=== PATIENT | female | born 1990 | race Caucasian/White ===

== ENCOUNTER 2016-04-21 16:15 | Emergency (ER) | payer OTHER ==
[2016-04-21 16:25] VITALS: BP 132/77
--- NOTE | 2016-04-21 16:58 | ERNOTE ---
ENT HPI Date of Service: 04/21/16 Presenting Symptoms: other - Sore throat Time Seen by Provider: 04/21/16 16:57 Source: patient, RN notes reviewed Exam Limitations: no limitations - Immun/Allergies/Home Medications Immunizations: IMMUNIZATION HX Immunizations Up to Date Yes History of Influenza Vaccine No Hx Pneumococcal Vaccination No Allergies/Adverse Reactions: Allergies Allergy/AdvReac Type Severity Reaction Status Date / Time amoxicillin [Amoxicillin] AdvReac Mild RASH, FEVER Verified 04/21/16 16:25 Home Medications: HOME MEDICATIONS Alprazolam [Alprazolam Xr] 1 mg PO QID PRN 01/13/16 [Last Taken Unknown] Acetaminophen [Tylenol] 1,000 mg PO Q6H PRN 01/16/16 [Last Taken Unknown] Albuterol Sulfate [Proair Hfa] 1 - 2 puff IH Q4H PRN 01/16/16 [Last Taken Unknown] Ibuprofen [Motrin] 800 mg PO TID 01/16/16 [Last Taken Unknown] Lamotrigine [Lamictal] 450 mg PO DAILY 01/16/16 [Last Taken Unknown] Ondansetron [Zofran Odt] 4 mg PO Q8H PRN 01/16/16 [Last Taken Unknown] buPROPion HCL [Wellbutrin SR, Zyban] 150 mg PO DAILY 01/16/16 [Last Taken Unknown] Azithromycin [Zithromax] 250 mg PO DAILY #6 tablet 04/21/16 [Last Taken Unknown] - History of Present Illness Narrative: 25 y/o female ambulatory to ED for a sore throat that began yesterday. She also reports fever, chills, headache, and ear pain. She took Tylenol [employer]. ENT Location: Present: throat Prearrival Treatment: Present: over the counter meds Associated Symptoms - ENT: Reports: fever, malaise, sore throat, headache. Denies: cough, nasal congestion/drainage, facial pain/swelling, tooth pain, change in hearing, ear drainage Review of Systems - Review of Systems Constitutional: Present: fever, chills, fatigue, malaise EYE: Present: no symptoms reported ENT: Present: ear pain, sore throat. Absent: ear discharge, nose congestion, nasal drainage Respiratory: Absent: shortness of breath, cough Cardiology: Present: no symptoms reported Gastrointestinal/Abdominal: Absent: nausea, vomiting, abdominal pain Genitourinary: Absent: other - possible Musculoskeletal: Present: muscle pain, joint pain Skin: Absent: rash, lesions Neurological: Present: headache. Absent: dizziness/light-headedness Endocrine: Present: no symptoms reported Hematologic/Lymphatic: Present: no symptoms reported Psych: Present: no symptoms reported - Patient's Past Medical History Patient History - Medical: Anxiety, Headache, Other Patient History - Cardiac/Respiratory: Asthma Patient History - Cancer: No Hx of Cancer Patient History - Surgical Procedures: Cholecystectomy, Other Patient History - Other: None LMP (Calendar): 03/20/16 - Family History Mother Family History - Medical: No pertinent hx Family History - Cardiac/Respiratory: Asthma Father Family History - Medical: No pertinent hx Family History - Cardiac/Respiratory: Asthma maternal aunt Family History - Medical: No pertinent hx Family History - Cardiac/Respiratory: No pertinent hx - Social History Living Situations: home Abuse History: No History of abuse Psych History: Hx of Anxiety, Hx of Depression, Current tx/ever been on anti- depressants or anti-anxiety meds Smoking Status: Never smoker Alcohol Use: rarely Drug Use: none - Immunizations Immunizations Up to Date: Yes Hx Pneumococcal Vaccination: No History of Influenza Vaccine: No Physical Exam - Physical Exam General Appearance: Present: wd/wn, alert, other - appears uncomfortable Eye Exam: Normal inspection: bilateral Ears, Nose, Throat: Present: hearing grossly normal, pharyngeal erythema. Absent: abnormal TM (R), abnormal TM (L), nasal congestion, sinus pain/drainage , pharyngeal swelling, tonsillar exudate Neck: Present: supple, full range of motion, lymphadenopathy (R), lymphadenopathy (L), tender lateral Respiratory: Present: no respiratory distress, normal breath sounds, no accessory muscle use, lungs clear Cardiovascular/Chest: Present: regular rate, rhythm, no murmur Neurological Exam: Present: alert, oriented, normal mood/affect, no motor/ sensory deficits Skin Exam: Present: normal color, warm/dry ED Progress - Results and Orders Patient's Lab Results:: I have reviewed the patient's lab results. - Vital Signs Patient's Vital Signs:: I have reviewed the patient's vital signs. Vital Signs: Vital Signs 04/21/16 16:21 Temperature 37.4 C Pulse Rate 94 Respiratory 16 Rate Blood Pressure 132/77 O2 Sat by Pulse 97 Oximetry - Progress/Reassessment Chief Complaint: Sore Throat Progress:: Unchanged Plan - Plan Plan: Negative rapid strep but given fever and cervical adenopathy will treat for strep. Culture pending. Departure Clinical Impression: URI (upper respiratory infection) Qualifiers: URI type: unspecified URI Qualified Code(s): J06.9 - Acute upper respiratory infection, unspecified - Departure Disposition: Home self-care Condition: Good Instructions: Upper Respiratory Infection, Adult, [id number] Referrals: Cristal Paige MD [Primary Care Provider] - Prescriptions: Azithromycin [Zithromax] 250 mg PO DAILY #6 tablet
--- OUTSIDE RECORDS SUMMARY | 2016-04-21 17:05 | XMS REPORT | Continuity of Care Document ---
:1990 Author Organization [facility] ([facility]) Address [address] [place] [address] Phone [phone] Care Team Providers Name Role Phone Joel Alvarado Primary Care Provider [phone] Source Comments This disclosure is being made pursuant to the Care Everywhere program, applicable federal and state laws, and may not contain all informaitonavailable regarding this patient.[facility] ([facility]) Active Allergies and Adverse Reactions Allergen Noted Date Severity Reactions Comments No Known Allergies 09/22/2011 NO REACTION Current Medications Prescription Sig. Disp. Refills Start Date End Date Status amitriptyline 25 mg tablet Take 25 mg by Active mouth at bedtime. oxybutynin 10 mg CR tablet Take 1 Tab by 30 Tab 11 09/22/2011 Active mouth daily. Indications: INCREASED URINARY FREQUENCY AMOXICILLIN PO Take 1 Tab by Active mouth daily. MEDROXYPROGESTERONE ACETATE inject Active (DEPO-PROVERA IM) intramuscularly. HYDROCODONE Take 1 Tab by Active BIT/ACETAMINOPHEN (VICODIN mouth as needed. PO) metroNIDAZOLE 500 mg tablet Take 1 Tab by 14 Tab 0 12/08/2011 Active mouth 2 times daily. Indications: BACTERIAL VAGINOSIS Active Problems Problem Noted Date Abdominal pain, unspecified site 09/22/2011 Endometriosis 09/22/2011 Social History Tobacco Use Types Packs/Day Years Used Date Never Smoker Smokeless Tobacco: Never Used Alcohol Use Drinks/Week oz/Week Comments Yes rare Last Filed Vital Signs Vital Sign Reading Time Taken Blood Pressure 131/67 12/08/2011 8:07 AM CDT Pulse 80 12/08/2011 8:07 AM CDT Temperature 37 C (98.6 F) 09/22/2011 2:43 PM CDT Respiratory Rate 14 09/22/2011 2:43 PM CDT Height 1.651 m (5' 5") 12/08/2011 8:07 AM CDT Weight 90.8 kg (200 lb 2.8 oz) 12/08/2011 8:07 AM CDT Body Mass Index 33.31 12/08/2011 8:07 AM CDT Oxygen Saturation - - Plan of Care Health Maintenance Due Date Last Done Comments Hepatitis B Vaccine (1 of 3 - Primary Series) 1989 HPV Vaccine (1 of 3 - Female/Unknown 3 Dose Series) 2000 Tdap Vaccine 2000 Cervical Cancer Screening 09/28/2007 Lipid Disorder Screening 09/28/2007 MMR Vaccine 09/28/2007 Td Vaccine 09/28/2007 Varicella Vaccine (1 of 2 - Adult - No Evidence of 09/28/2007 Immunity) Influenza Vaccine: Seasonal (#1) 10/06/2015 Results from Last 3 Months Not on file
--- OUTSIDE RECORDS SUMMARY | 2016-04-21 17:05 | XMS REPORT | Continuity of Care Document ---
:1990 Author Organization [facility] Address [place] [address] Care Team Providers Name Role Phone Joel Alvarado Primary Care Provider [phone] Source Comments This disclosure is being made pursuant to the [employer] program and maynot contain all information available regarding this patient.[employer] [facility] Active Allergies and Adverse Reactions Allergen Noted Date Severity Reactions Comments Amoxicillin 09/15/2012 High Hives Current Medications Be aware that medications may not be up to date as of this document. Alwaysverify current medications with the patient. Prescription Sig. Disp. Refills Start Date End Date Status loratadine (CLARITIN) Take 10 mg by Active 10 MG tablet mouth daily. fluticasone (FLONASE) 1 spray by Nasal Active 50 MCG/ACT nasal spray route daily. clonazepam (KLONOPIN) Take 1 tablet by 60 tablet 0 09/18/2012 Active 0.5 MG tablet mouth 2 (two) times daily as needed for Anxiety. Indications: Feeling Anxious escitalopram (LEXAPRO) Take 1 tablet by 30 tablet 0 09/18/2012 Active 10 MG tablet mouth daily. lamoTRIgine (LAMICTAL) Take 2 tablets by 60 tablet 0 09/18/2012 Active 25 MG tablet mouth daily. Indications: Mood Disorder traZODone (DESYREL) Take 1 tablet by 30 tablet 0 09/18/2012 Active 100 MG tablet mouth nightly. Active Problems Problem Noted Date Depression 09/15/2012 Anxiety 09/15/2012 Most Recent Encounters Date Type Specialty Providers Description 02/19/2016 Data Import Social History Tobacco Use Types Packs/Day Years Used Date Never Smoker Alcohol Use Drinks/Week oz/Week Comments Yes occasionally Last Filed Vital Signs Vital Sign Reading Time Taken Blood Pressure 112/77 09/18/2012 11:31 AM CDT Pulse 86 09/18/2012 11:31 AM CDT Temperature 35.9 C (96.6 F) 09/18/2012 9:12 AM CDT Respiratory Rate 20 09/18/2012 9:12 AM CDT Height 1.651 m (5' 5") 09/15/2012 5:41 PM CDT Weight 75.841 kg (167 lb 3.2 oz) 09/15/2012 5:41 PM CDT Body Mass Index 27.82 09/15/2012 5:41 PM CDT Oxygen Saturation 99% 09/18/2012 9:12 AM CDT Plan of Care Health Maintenance Due Date Last Done Comments Tetanus/Pertussis (1 - Tdap) 2008 Pap Smear 2010 Influenza Immunization (#1) 2015 Results from Last 3 Months Not on file
== END 2016-04-21 17:16 | disposition home or self-care (01) ==
LOC: ER 16:15
DX: J06.9 Acute upper respiratory infection, unspecified (principal)

== ENCOUNTER 2016-05-28 19:03 | Emergency (ER) | payer OTHER ==
[2016-05-28 19:38] VITALS: BP 116/74
[2016-05-28] MEDS ORDERED: KETOROLAC TROMETHAMINE 60 MG/2 ML VIAL IM ONE ×2 (20:41→20:43)
[2016-05-28] MEDS ORDERED: PROMETHAZINE HCL 50 MG/ML AMPUL IM ONE ×2 (20:41→20:42)
--- NOTE | 2016-05-28 20:47 | ERNOTE ---
Headache ER HPI - Narrative Date of Service: 05/28/16 - General Presenting Symptoms: headache Source: patient Exam Limitations: no limitations - Immun/Allergies/Home Medications Immunizations: IMMUNIZATION HX Immunizations Up to Date Yes History of Influenza Vaccine No Hx Pneumococcal Vaccination No Allergies/Adverse Reactions: Allergies amoxicillin [Amoxicillin] Adverse Reaction (Mild, Verified 05/28/16 19:38) RASH, FEVER Home Medications: HOME MEDICATIONS Alprazolam [Alprazolam Xr] 1 mg PO QID PRN 01/13/16 [Last Taken Unknown] Albuterol Sulfate [Proair Hfa] 1 - 2 puff IH Q4H PRN 01/16/16 [Last Taken Unknown] Lamotrigine [Lamictal] 450 mg PO DAILY 01/16/16 [Last Taken Unknown] buPROPion HCL [Wellbutrin SR, Zyban] 150 mg PO DAILY 01/16/16 [Last Taken Unknown] - History of Present Illness Narrative: 25-year-old female with infrequent migraines states that she went to the clinic today thinking she had the flu but then later realized it was a migraine headache coming on. the headache is right-sided with nausea vomiting and visual disturbance Review of Systems - Review of Systems Constitutional: Present: See HPI EYE: Present: see HPI ENT: Present: See HPI Respiratory: Present: See HPI Cardiology: Present: no symptoms reported Gastrointestinal/Abdominal: Present: no symptoms reported Genitourinary: Present: no symptoms reported Musculoskeletal: Present: no symptoms reported Skin: Present: no symptoms reported Neurological: Present: See HPI Endocrine: Present: no symptoms reported Hematologic/Lymphatic: Present: no symptoms reported Psych: Present: no symptoms reported All Other Systems: All systems neg except as marked - Patient's Past Medical History Patient History - Medical: Anxiety, Depression, Headache, Other Patient History - Cardiac/Respiratory: Asthma Patient History - Cancer: No Hx of Cancer Patient History - Surgical Procedures: Cholecystectomy, Other Patient History - Other: None LMP (females 10-50): now LMP (Calendar): 03/20/16 - Family History Mother Family History - Medical: No pertinent hx Family History - Cardiac/Respiratory: Asthma Father Family History - Medical: No pertinent hx Family History - Cardiac/Respiratory: Asthma maternal aunt Family History - Medical: No pertinent hx Family History - Cardiac/Respiratory: No pertinent hx - Social History Living Situations: home Abuse History: No History of abuse Psych History: Hx of Anxiety, Hx of Depression, Current tx/ever been on anti- depressants or anti-anxiety meds Smoking Status: Light tobacco smoker Alcohol Use: rarely Drug Use: none - Immunizations Immunizations Up to Date: Yes Hx Pneumococcal Vaccination: No History of Influenza Vaccine: No Physical Exam - Physical Exam General Appearance: Present: moderate distress Eye Exam: Normal inspection: bilateral, PERRL: bilateral, Photophobia: bilateral Ears, Nose, Throat: Present: normal ENT inspection Neck: Present: normal inspection Respiratory: Present: no respiratory distress, normal breath sounds, no accessory muscle use Cardiovascular/Chest: Present: regular rate, rhythm, no murmur, normal peripheral pulses Gastrointestinal/Abdominal: Present: normal bowel sounds, nontender, nondistended, soft, no organomegaly Rectal Exam: Present: deferred Back Exam: Present: normal inspection Extremity Exam: Present: normal inspection, non-tender Neurological Exam: Present: alert, oriented Skin Exam: Present: normal color, warm/dry Lymphatic Exam: Present: no adenopathy ED Progress - Vital Signs Vital Signs: Vital Signs 05/28/16 19:34 Temperature 37.0 C Pulse Rate 72 Respiratory 16 Rate Blood Pressure 116/74 O2 Sat by Pulse 100 Oximetry - Progress/Reassessment Chief Complaint: Headache Departure Clinical Impression: Migraine Qualifiers: Migraine type: without aura Status migrainosus presence: without status migrainosus Intractability: not intractable Qualified Code(s): G43.009 - Migraine without aura, not intractable, without status migrainosus - Departure Condition: Fair Instructions: Migraine Headache, [id number] Referrals: Cristal Paige MD [Primary Care Provider] -
--- OUTSIDE RECORDS SUMMARY | 2016-05-28 20:55 | XMS REPORT | Continuity of Care Document ---
:1990 Author Organization [facility] ([facility]) Address [address] [place] [address] Phone [phone] Care Team Providers Name Role Phone Joel Alvarado Primary Care Provider [phone] Source Comments This disclosure is being made pursuant to the Care Everywhere program, applicable federal and state laws, and may not contain all informaitonavailable regarding this patient.[facility] ([facility]) Active Allergies and Adverse Reactions Allergen Noted [...]
--- OUTSIDE RECORDS SUMMARY | 2016-05-28 20:55 | XMS REPORT | Continuity of Care Document ---
:1990 Author Organization [employer] [place] [address] Care Team Providers Name Role Phone Joel Alvarado Primary Care Provider [phone] Source Comments This disclosure is being made pursuant to the [employer] program and maynot contain all information available regarding this patient.[employer] Active Allergies and Adverse Reactions Allergen Noted [...] Problem Noted Date Depression 09/15/2012 Anxiety 09/15/2012 Social History Tobacco Use Types Packs/Day Years [...]
== END 2016-05-28 21:27 | disposition home or self-care (01) ==
LOC: ER 19:03
DX: G43.009 Migraine without aura, not intractable, without status migrainosus (principal); F17.210 Nicotine dependence, cigarettes, uncomplicated; J45.909 Unspecified asthma, uncomplicated; F41.9 Anxiety disorder, unspecified; F32.9 Major depressive disorder, single episode, unspecified

== ENCOUNTER 2016-07-08 12:39 | Emergency (ER) | payer OTHER ==
[2016-07-08 12:59] VITALS: BP 113/67
--- NOTE | 2016-07-08 13:03 | ERNOTE ---
Date of Service: 07/08/16 Time Seen by Provider: 07/08/16 12:49 Stated Complaint: COUGH Presenting Symptoms:: cough Source: patient Immunizations: IMMUNIZATION HX Immunizations Up to Date Yes History of Influenza Vaccine No Hx Pneumococcal Vaccination No Allergies/Adverse Reactions: Allergies amoxicillin [Amoxicillin] Adverse Reaction (Mild, Verified 07/08/16 12:45) RASH, FEVER Home Medications: HOME MEDICATIONS Alprazolam [Alprazolam Xr] 0.5 mg PO QID PRN 01/13/16 [Last Taken 07/08/16] Albuterol Sulfate [Proair Hfa] 1 - 2 puff IH Q4H PRN 01/16/16 [Last Taken ] lamoTRIgine [Lamictal] 300 mg PO DAILY 01/16/16 [Last Taken 07/08/16] Azithromycin [Zithromax] 500 mg PO NOW #6 tab 07/08/16 [Last Taken Unknown] - History of Present Ilness Narrative: Patient presents to the ED for cough. She relates that she has been sick with productive cough for over 1 week. No hemoptysis. Colored sputum. Her SO was also sick but took some left over ABx at home and he then improved. She states no CP except with cough. Low-grade fever. Nasal congestion. Has not seen anyone else for this. No SOB. She is 6 weeks but denies complaint. No dysuria or vaginal bleeding. Timing: constant Severity: moderate Frequency/Possible Cause: Reports: illness exposure Modifying Factors - Improves: Reports: nothing Modifying Factors - Worsens: Reports: nothing Associated Symptoms: Reports: cough, nasal congestion. Denies: shortness of breath, wheezing, lightheadedness, headache, sore throat Prior Treatment: Denies: recently seen Review of Systems - Review of Systems Constitutional: Present: fever EYE: Present: no symptoms reported ENT: Present: See HPI Respiratory: Present: See HPI Cardiology: Absent: syncope Gastrointestinal/Abdominal: Absent: abdominal pain Genitourinary: Absent: dysuria - Patient's Past Medical History Patient History - Medical: Anxiety, Depression, Headache, Other Patient History - Cardiac/Respiratory: Asthma Patient History - Cancer: No Hx of Cancer Patient History - Surgical Procedures: Cholecystectomy, Other Patient History - Other: None LMP (Calendar): 03/20/16 - Family History Mother Family History - Medical: No pertinent hx Family History - Cardiac/Respiratory: Asthma Father Family History - Medical: No pertinent hx Family History - Cardiac/Respiratory: Asthma maternal aunt Family History - Medical: No pertinent hx Family History - Cardiac/Respiratory: No pertinent hx - Social History Living Situations: home Abuse History: No History of abuse Psych History: Hx of Anxiety, Hx of Depression, Current tx/ever been on anti- depressants or anti-anxiety meds Smoking Status: Never smoker Have you smoked in the past 12 months: No Do you dip or chew tobacco: No Alcohol Use: rarely Drug Use: none - Immunizations Immunizations Up to Date: Yes Hx Pneumococcal Vaccination: No History of Influenza Vaccine: No Physical Exam - Physical Exam General Appearance: Present: alert, no apparent distress, other - well hydrated , no distress. Frequent cough,, speaking in full sentences. Eye Exam: Normal inspection: bilateral, PERRL: bilateral Ears, Nose, Throat: Present: nasal congestion, normal pharynx. Absent: pharyngeal erythema, pharyngeal swelling, tonsillar exudate, dry mucous membranes Neck: Present: normal inspection Respiratory: Present: no respiratory distress, normal breath sounds, no accessory muscle use, lungs clear Cardiovascular/Chest: Present: regular rate, rhythm Gastrointestinal/Abdominal: Present: normal bowel sounds, nontender, soft Back Exam: Present: normal range of motion Extremity Exam: Present: normal inspection, non-tender, no edema Neurological Exam: Present: alert, normal mood/affect, no motor/sensory deficits Skin Exam: Absent: skin rash ED Progress - Vital Signs Patient's Vital Signs:: I have reviewed the patient's vital signs. Vital Signs: Vital Signs 07/08/16 12:41 Temperature 36.9 C Pulse Rate 85 Respiratory 14 Rate Blood Pressure 102/69 O2 Sat by Pulse 97 Oximetry - Progress/Reassessment Chief Complaint: Cough Progress Note-Subjective: 07/08/16 12:59 I discussed options with the patient. I offered her a full w/u with CXR, labs but she would like treatment as the ABx helped her SO. chanelle will use Z- Ranjit. No clinical distress or hypoxia. I discussed warning signs and reasons to return as well as the need for close f/u. nothing would suggest related complication o, PE or other acute life threat. 07/08/16 13:00 Departure - Departure Clinical Impression: Bronchitis Disposition: Home self-care Condition: Stable Instructions: Acute Bronchitis, [id number] Additional Instructions: Rest. Fluids. Work note. Antibiotic as directed. Follow-up with primary doctor tuesday for a re-check. Return for trouble breathing or if your condition worsens or changes in any way. Referrals: Cristal Paige MD [Primary Care Provider] - Prescriptions: Azithromycin [Zithromax] 500 mg PO NOW #6 tab
--- OUTSIDE RECORDS SUMMARY | 2016-07-08 13:09 | XMS REPORT | Continuity of Care Document ---
:1990 Author Organization [facility] [place] [address] Care Team Providers Name Role Phone Joel Alvarado Primary Care Provider [phone] Source Comments This disclosure is being made pursuant to the [employer] program and maynot contain all information available regarding this patient.[facility] Active Allergies and Adverse Reactions Allergen Noted [...]
--- OUTSIDE RECORDS SUMMARY | 2016-07-08 13:09 | XMS REPORT | Continuity of Care Document ---
:1990 Author Organization [facility] ([facility]) Address [address] [place] [address] Phone [phone] Care Team Providers Name Role Phone Joel Alvarado Primary Care Provider [phone] Source Comments This disclosure is being made pursuant to the Care Everywhere program, applicable federal and state laws, and may not contain all informaitonavailable regarding this patient.[facility] ([facility]) Active Allergies and Adverse Reactions [...]
== END 2016-07-08 13:09 | disposition home or self-care (01) ==
LOC: ER 12:39
DX: J40 Bronchitis, not specified as acute or chronic (principal); Z33.1 Pregnant state, incidental

== ENCOUNTER 2016-07-12 20:26 | Emergency (ER) | payer OTHER ==
--- OUTSIDE RECORDS SUMMARY | 2016-07-12 22:14 | XMS REPORT | Continuity of Care Document ---
:1990 Author Organization [facility] ([facility]) Address [address] [place] [address] Phone [phone] Care Team Providers Name Role Phone Joel Alvarado Primary Care Provider [phone] Source Comments This disclosure is being made pursuant to the Care Everywhere program, applicable federal and state laws, and may not contain all informaitonavailable regarding this patient.[facility] ([facility]) Active Allergies and Adverse Reactions [...]
--- OUTSIDE RECORDS SUMMARY | 2016-07-12 22:14 | XMS REPORT | Continuity of Care Document ---
:1990 Author Organization [employer] [employer] [place] [address] Care Team Providers Name Role Phone Joel Alvarado Primary Care Provider [phone] Source Comments This disclosure is being made pursuant to the [employer] program and maynot contain all information available regarding this patient.[employer] Active Allergies and Adverse Reactions Allergen Noted [...]
--- NOTE | 2016-07-12 22:16 | ERNOTE ---
<Andre Ballardir - Last Filed: 07/12/16 22:54> ER Female HPI Date of Service: 07/12/16 Stated Complaint: 6 WEEKS - DISCHARGE/CRAMPING Presenting Symptoms: pelvic pain, vaginal discharge Source: patient Exam Limitations: no limitations Immunizations: IMMUNIZATION HX Immunizations Up to Date Yes History of Influenza Vaccine No Hx Pneumococcal Vaccination No Allergies/Adverse Reactions: Allergies amoxicillin [Amoxicillin] Adverse Reaction (Mild, Verified 07/08/16 12:45) RASH, FEVER Home Medications: HOME MEDICATIONS Alprazolam [Alprazolam Xr] 0.5 mg PO QID PRN 01/13/16 [Last Taken 07/08/16] Albuterol Sulfate [Proair Hfa] 1 - 2 puff IH Q4H PRN 01/16/16 [Last Taken ] lamoTRIgine [Lamictal] 300 mg PO DAILY 01/16/16 [Last Taken 07/08/16] Azithromycin [Zithromax] 500 mg PO NOW #6 tab 07/08/16 [Last Taken Unknown] - History of Present Illness Narrative: Results of emergency room for vaginal discharge and left lower quadrant/pelvic pain. Date (Duration): 07/12/16 Timing: Present: constant Quality: Present: mild Onset Location: Present: LLQ Radiation: Present: none Activities at Onset: Present: none Prior Abdominal Problems: Present: none Associated Symptoms: Present: abdominal pain. Absent: fever/chills, diaphoresis , nausea, vomiting, dysuria, urinary frequency Review of Systems - Review of Systems Constitutional: Present: no symptoms reported EYE: Present: no symptoms reported ENT: Present: no symptoms reported Respiratory: Present: no symptoms reported Cardiology: Present: no symptoms reported Gastrointestinal/Abdominal: Present: See HPI Genitourinary: Present: See HPI Musculoskeletal: Present: no symptoms reported Skin: Present: no symptoms reported Neurological: Present: no symptoms reported Endocrine: Present: no symptoms reported Hematologic/Lymphatic: Present: no symptoms reported Psych: Present: no symptoms reported - Patient's Past Medical History Patient History - Medical: Anxiety, Depression, Headache, Other Patient History - Cardiac/Respiratory: Asthma Patient History - Cancer: No Hx of Cancer Patient History - Surgical Procedures: Cholecystectomy, Other Patient History - Other: None LMP (Calendar): 03/20/16 - Family History Mother Family History - Medical: No pertinent hx Family History - Cardiac/Respiratory: Asthma Father Family History - Medical: No pertinent hx Family History - Cardiac/Respiratory: Asthma maternal aunt Family History - Medical: No pertinent hx Family History - Cardiac/Respiratory: No pertinent hx - Social History Living Situations: alone Abuse History: No History of abuse Psych History: Hx of Anxiety, Hx of Depression, Current tx/ever been on anti- depressants or anti-anxiety meds Smoking Status: Current every day smoker Have you smoked in the past 12 months: Yes Alcohol Use: none Drug Use: none - Immunizations Immunizations Up to Date: Yes Hx Pneumococcal Vaccination: No History of Influenza Vaccine: No Physical Exam - Physical Exam General Appearance: Present: wd/wn, alert, no apparent distress Eye Exam: Normal inspection: bilateral Ears, Nose, Throat: Present: normal ENT inspection, normal pharynx Neck: Present: normal inspection, nontender Respiratory: Present: no respiratory distress, normal breath sounds, no accessory muscle use, lungs clear Cardiovascular/Chest: Present: regular rate, rhythm, no murmur, normal peripheral pulses Gastrointestinal/Abdominal: Present: normal bowel sounds, soft, tenderness - llq /pelvic area Back Exam: Present: normal inspection, normal range of motion, no vertebral tenderness Extremity Exam: Present: normal inspection, normal range of motion, no edema Neurological Exam: Present: alert, oriented, normal mood/affect, no motor/ sensory deficits Skin Exam: Present: normal color, warm/dry Lymphatic Exam: Present: no adenopathy Pelvic Exam: Present: discharge. Absent: cervical motion tendernes - white, tender adnexa, tender uterus ED Progress - Vital Signs Vital Signs: Vital Signs 07/12/16 21:00 Temperature 37.2 C Pulse Rate 78 Respiratory 16 Rate Blood Pressure 105/66 O2 Sat by Pulse 100 Oximetry - Progress/Reassessment Chief Complaint: Genitourinary Problem - Transfer of Care Physician Sign Out: Marcus Ballard Brief History: 25 year old female, 6 weeks preg, work up for pelvic pain and discharge Receiving Physician: Anastacio Cuba Pending Results: Labs, X-ray results Expected Disposition: Discharge Departure Clinical Impression: Pelvic pain affecting in first trimester, antepartum - Departure Disposition: Home self-care Condition: Good Instructions: Pelvic Pain, Female, [id number] Additional Instructions: See your OB provider or return to ER if you have any bleeding or pain worsens Referrals: Cristal Paige MD [Primary Care Provider] - <Anastacio Cuba - Last Filed: 07/13/16 05:06> ER Female HPI Immunizations: IMMUNIZATION HX Immunizations Up to Date Yes History of Influenza Vaccine No Hx Pneumococcal Vaccination No ED Progress - Results and Orders Patient's Lab Results:: I have reviewed the patient's lab results. Results and Orders: Laboratory Tests 07/12/16 07/12/16 07/12/16 22:20 22:20 22:30 WBC 6.9 Hgb 12.4 L Hct 35.3 L Plt Count 190 Urine Color Yellow Urine Appearance Clear Urine pH 6.0 Ur Specific Fletcher 1.025 Urine Protein Negative Urine Glucose (UA) Negative Urine Ketones 5 Urine Blood Negative Urine Nitrate Negative Urine Bilirubin Negative Urine Urobilinogen Normal Ur Leukocyte Esterase Negative Urine RBC 0-5 Urine WBC 0-5 Ur Epithelial Cells >25 H Amorphous Sediment Few - 1+ Urine Bacteria 1+ H Urine Culture Comments No culture indicated Maternal Serum HCG [address] H - Vital Signs Patient's Vital Signs:: I have reviewed the patient's vital signs. Vital Signs: Vital Signs 07/12/16 07/12/16 21:00 22:12 Temperature 37.2 C 36.3 C L Pulse Rate 78 74 Respiratory 16 18 Rate Blood Pressure 105/66 120/48 O2 Sat by Pulse 100 99 Oximetry - CT/Ultrasound CT/Ultrasound Narrative: Single IUP approx 7w1d GA, HR 131, Normal appearance. Normal ovaries, no free fluid in the pelvis - Progress/Reassessment Progress Note-Subjective: discussed U/S results with patient prior to discharge. Pt expressed understanding. 07/13/16 05:04
[2016-07-12 22:23] LABS: Hematocrit 35.3 % (37.0-47.0); Hemoglobin 12.4 gm/dL (12.5-16.0); Mean Cell Volume 90.3 fl (78-100); Mean Corpuscular Hemoglobin 31.7 pg (27-31); Mean Corpuscular Hgb Conc 35.1 g/dl (32-36); Mean Platelet Volume 9.2 fl (6.0-9.5); Neutrophil # 4.5 K/mm3 (1.3-6.0); Neutrophil % 65.1 % (42-75.0); Platelet Count 190 K/mm3 (150-450); Red Blood Count 3.91 M/mm3 (4.2-5.4); Red Cell Distribution Width 12.4 % (11.5-14.0); White Blood Count 6.9 K/mm3 (4.0-10.5)
[2016-07-12 22:42] LABS: Urine Bilirubin Negative (NEGATIVE); Urine Blood Negative /ul (NEGATIVE); Urine Ketone 5 mg/dL (NEGATIVE); Urine Nitrite Negative (NEGATIVE); Urine Protein Negative (NEGATIVE); Urine Specific Gravity 1.025 SP.GR. (1.005-1.010); Urine Urobilinogen Normal (NORMAL)
[2016-07-12 22:52] LABS: Urine Appearance Clear; Urine Color Yellow; Urine RBC 0-5 /hpf (0-5); Urine WBC 0-5 /hpf (0-5)
[2016-07-12 22:54] LABS: Urine Amorphous Sediment Few - 1+ (NONE-FEW); Urine Bacteria 1+
[2016-07-13 00:14] VITALS: BP 116/50
== END 2016-07-13 00:05 | disposition home or self-care (01) ==
LOC: ER 20:26
DX: R10.2 Pelvic and perineal pain (principal); Z33.1 Pregnant state, incidental; Z3A.01 Less than 8 weeks gestation of pregnancy

== ENCOUNTER 2016-11-15 11:03 | Emergency (ER) | payer OTHER ==
[2016-11-15 11:16] VITALS: BP 114/58
--- NOTE | 2016-11-15 12:19 | ERNOTE ---
Date of Service: 11/15/16 Time Seen by Provider: 11/15/16 11:50 Stated Complaint: COLD-25 WKS Presenting Symptoms:: cough, runny nose, fever Source: patient Exam Limitations: no limitations Immunizations: IMMUNIZATION HX Immunizations Up to Date Yes History of Influenza Vaccine No Hx Pneumococcal Vaccination No Allergies/Adverse Reactions: Allergies amoxicillin [Amoxicillin] Adverse Reaction (Mild, Verified 11/15/16 11:15) RASH, FEVER Home Medications: HOME MEDICATIONS Vit37/Iron/Folic Acid [Prenata Chewable Tablet] 1 each PO DAILY [Last Taken Unknown] predniSONE [Prednisone] 2 tab PO DAILY #10 tab 11/15/16 [Last Taken Unknown] - History of Present Ilness Narrative: Pt. comes in with 6 day history of cough, fever, rhinorrhea, yellow sputum, and sinus congestion. Pt. has a hx of asthma so her PCP started her on a Z-pack but her symptoms did not improve. Pt. denies any SOB, CP, NVD, but states that fever has continued at 101 and she has had to use her rescue inhaler approximately 1-2 times per day since onset of symptoms. Pt. also states that she is a current daily smoker of 1 PPD. Review of Systems - Review of Systems Constitutional: Present: no symptoms reported. Absent: recent illness, fever, chills, weakness, fatigue, malaise EYE: Present: no symptoms reported ENT: Present: nose congestion, nasal drainage Respiratory: Present: cough. Absent: shortness of breath, wheezing Cardiology: Present: no symptoms reported. Absent: chest pain, palpitations, edema Gastrointestinal/Abdominal: Present: no symptoms reported Genitourinary: Present: no symptoms reported Musculoskeletal: Present: no symptoms reported. Absent: back pain, joint pain Skin: Present: no symptoms reported. Absent: rash, change in color Neurological: Present: no symptoms reported. Absent: headache, dizziness/light- headedness, numbness, tingling All Other Systems: All systems neg except as marked - Patient's Past Medical History Patient History - Medical: Anxiety, Depression, Headache Patient History - Cardiac/Respiratory: Asthma Patient History - Cancer: No Hx of Cancer Patient History - Surgical Procedures: Cholecystectomy, Other Patient History - Other: None LMP (Calendar): 03/20/16 - Family History Mother Family History - Medical: No pertinent hx Family History - Cardiac/Respiratory: Asthma Father Family History - Medical: No pertinent hx Family History - Cardiac/Respiratory: Asthma maternal aunt Family History - Medical: No pertinent hx Family History - Cardiac/Respiratory: No pertinent hx - Social History Living Situations: home Abuse History: No History of abuse Psych History: Hx of Anxiety, Hx of Depression, Current tx/ever been on anti- depressants or anti-anxiety meds Smoking Status: Current every day smoker Have you smoked in the past 12 months: Yes Alcohol Use: none Drug Use: none - Immunizations Immunizations Up to Date: Yes Hx Pneumococcal Vaccination: No History of Influenza Vaccine: No Physical Exam - Physical Exam General Appearance: Present: wd/wn, alert, no apparent distress Head Exam: Present: normal inspection, no evidence of injury Eye Exam: Normal inspection: bilateral, PERRL: bilateral, EOMI: bilateral Ears, Nose, Throat: Present: nasal congestion, sinus pain/drainage - R frontal and . Absent: pharyngeal erythema, pharyngeal swelling Neck: Present: normal inspection, nontender. Absent: lymphadenopathy (R), lymphadenopathy (L) Respiratory: Present: no respiratory distress, normal breath sounds, no accessory muscle use, chest nontender, lungs clear Cardiovascular/Chest: Present: regular rate, rhythm, no murmur, normal peripheral pulses Gastrointestinal/Abdominal: Present: normal bowel sounds, nontender Back Exam: Present: normal inspection Extremity Exam: Present: normal inspection, non-tender, normal range of motion, no edema Neurological Exam: Present: alert, oriented, normal mood/affect, no motor/ sensory deficits Skin Exam: Present: normal color, warm/dry. Absent: pallor, skin rash ED Progress - Date and Time Seen: Date and Time: 11/15/16 12:17 Pt. already had z-pack that did not improve symptoms and feel that as pt. has only had illness for a week that this may be viral will start on Steroids as the illness seems to be exacerbating pt. asthma symptoms. Educated pt. to stop smoking and continue inhaler and start sinus rinses. - Vital Signs Patient's Vital Signs:: I have reviewed the patient's vital signs. Vital Signs: Vital Signs 11/15/16 11:12 Temperature 36.9 C Pulse Rate 82 Respiratory 14 Rate Blood Pressure 114/58 O2 Sat by Pulse 97 Oximetry - Progress/Reassessment Chief Complaint: Upper Respiratory Symptoms Departure - Departure Clinical Impression: Bronchitis, Asthma exacerbation URI (upper respiratory infection) Qualifiers: URI type: unspecified viral URI Qualified Code(s): J06.9 - Acute upper respiratory infection, unspecified Disposition: Home self-care Condition: Good Instructions: Upper Respiratory Infection, Adult, [id number] Additional Instructions: Please follow up with primary provider in 5-7 days or sooner if not improving. Please quit smoking, and please start sinus rinses. Referrals: Cristal Paige MD [Primary Care Provider] - Prescriptions: predniSONE [Prednisone] 2 tab PO DAILY #10 tab
== END 2016-11-15 12:20 | disposition home or self-care (01) ==
LOC: ER 11:03
DX: J45.901 Unspecified asthma with (acute) exacerbation (principal); F17.200 Nicotine dependence, unspecified, uncomplicated; J06.9 Acute upper respiratory infection, unspecified; B97.89 Other viral agents as the cause of diseases classified elsewhere

== ENCOUNTER 2016-11-21 14:45 | Emergency (ER) | payer OTHER ==
[2016-11-21 14:58] VITALS: BP 115/68
--- NOTE | 2016-11-21 15:16 | ERNOTE ---
Date of Service: 11/21/16 Time Seen by Provider: 11/21/16 15:00 Stated Complaint: COUGH Presenting Symptoms:: cough Source: patient Exam Limitations: no limitations Immunizations: IMMUNIZATION HX Immunizations Up to Date Yes History of Influenza Vaccine No Hx Pneumococcal Vaccination No Allergies/Adverse Reactions: Allergies amoxicillin [Amoxicillin] Adverse Reaction (Mild, Verified 11/15/16 11:15) RASH, FEVER Home Medications: HOME MEDICATIONS Vit37/Iron/Folic Acid [Prenata Chewable Tablet] 1 each PO DAILY [Last Taken Unknown] Cephalexin Monohydrate [Keflex] 500 mg PO QID #40 cap 11/21/16 [Last Taken Unknown] - History of Present Ilness Narrative: patient had previous treatment with antibiotics and has not improved, currently Timing: constant, getting worse Severity: moderate Frequency/Possible Cause: Reports: no prior episodes Modifying Factors - Improves: Reports: nothing Modifying Factors - Worsens: Reports: coughing Associated Symptoms: Reports: wheezing, nasal congestion Review of Systems - Review of Systems Constitutional: Present: See HPI, recent illness, fatigue, malaise EYE: Present: no symptoms reported ENT: Present: nose congestion, nasal drainage Respiratory: Present: cough, wheezing Cardiology: Present: no symptoms reported Gastrointestinal/Abdominal: Present: no symptoms reported Genitourinary: Present: no symptoms reported Musculoskeletal: Present: no symptoms reported Skin: Present: no symptoms reported Neurological: Present: no symptoms reported Endocrine: Present: no symptoms reported Hematologic/Lymphatic: Present: no symptoms reported Psych: Present: no symptoms reported All Other Systems: All systems neg except as marked - Patient's Past Medical History Patient History - Medical: Anxiety, Depression, Headache Patient History - Cardiac/Respiratory: Asthma Patient History - Cancer: No Hx of Cancer Patient History - Surgical Procedures: Cholecystectomy, Other Patient History - Other: None LMP (females 10-50): LMP (Calendar): 03/20/16 - Family History Mother Family History - Medical: No pertinent hx Family History - Cardiac/Respiratory: Asthma Father Family History - Medical: No pertinent hx Family History - Cardiac/Respiratory: Asthma Family History - Cancer: No pertinent family hx maternal aunt Family History - Medical: No pertinent hx Family History - Cardiac/Respiratory: No pertinent hx - Social History Living Situations: home Abuse History: No History of abuse Psych History: Hx of Anxiety, Hx of Depression, Current tx/ever been on anti- depressants or anti-anxiety meds Smoking Status: Current every day smoker Have you smoked in the past 12 months: Yes Alcohol Use: none Drug Use: none - Immunizations Immunizations Up to Date: Yes Hx Pneumococcal Vaccination: No History of Influenza Vaccine: No Physical Exam - Physical Exam General Appearance: Present: wd/wn, alert, no apparent distress Head Exam: Present: normal inspection, no evidence of injury Eye Exam: Normal inspection: bilateral, PERRL: bilateral, EOMI: bilateral Ears, Nose, Throat: Present: normal ENT inspection Neck: Present: normal inspection, nontender Respiratory: Present: no respiratory distress, normal breath sounds, no accessory muscle use Cardiovascular/Chest: Present: regular rate, rhythm, no murmur, normal peripheral pulses Peripheral Pulses: N=norm/S=strong/W=weak/B=bound/A=absent: Carotid (R): Normal , Carotid (L): Normal, Radial (R): Normal, Radial (L): Normal, Femoral (R): Normal, Femoral (L): Normal, Dorsalis-pedis (R): Normal Gastrointestinal/Abdominal: Present: normal bowel sounds, nontender, nondistended, soft, no organomegaly, other - gravid uterus Back Exam: Present: normal inspection, normal range of motion, no CVA tenderness , no vertebral tenderness Extremity Exam: Present: normal inspection, non-tender, normal range of motion, no edema Neurological Exam: Present: alert, oriented, normal mood/affect, no motor/ sensory deficits Skin Exam: Present: normal color, warm/dry Lymphatic Exam: Present: no adenopathy ED Progress - Vital Signs Vital Signs: Vital Signs 11/21/16 14:52 Temperature 36.4 C L Pulse Rate 82 Respiratory 16 Rate Blood Pressure 115/68 O2 Sat by Pulse 97 Oximetry - Progress/Reassessment Chief Complaint: Upper Respiratory Symptoms Departure - Departure Clinical Impression: Bronchitis Disposition: Home self-care Instructions: Acute Bronchitis Referrals: Kayode Milner DO [Staff Physician] - Prescriptions: Cephalexin Monohydrate [Keflex] 500 mg PO QID #40 cap
== END 2016-11-21 15:15 | disposition home or self-care (01) ==
LOC: ER 14:45
DX: J40 Bronchitis, not specified as acute or chronic (principal); Z33.1 Pregnant state, incidental; Z3A.35 35 weeks gestation of pregnancy; F17.200 Nicotine dependence, unspecified, uncomplicated

== ENCOUNTER 2017-01-18 15:18 | Observation (INO) | payer OTHER ==
[2017-01-18] MEDS ORDERED: RINGER'S SOLUTION,LACTATED 1,000 ML IV PRN (15:39)
[2017-01-18] MEDS ORDERED: DEXTROSE 5%-LACTATED RINGERS 1,000 ML IV PRN (15:39)
[2017-01-18] MEDS ORDERED: ceFAZolin SODIUM 2 GM in DEXTROSE 5 % IN WATER 50 ML IV ONE ×2 (15:39)
[2017-01-18] MEDS ORDERED: BETAMETHASONE ACETATE,SOD PHOS 6 MG/ML VIAL IM SCH (15:45)
[2017-01-18] MEDS: TERBUTALINE SULFATE 1 MG/ML VIAL SC ONE ×2 (15:54→18:40)
[2017-01-18 15:58] LABS: Urine Bilirubin Negative (NEGATIVE); Urine Blood Negative /ul (NEGATIVE); Urine Ketone Negative (NEGATIVE); Urine Nitrite Negative (NEGATIVE); Urine Protein Negative (NEGATIVE); Urine Specific Gravity <=1.005 SP.GR. (1.005-1.010); Urine Urobilinogen Normal (NORMAL); Urine pH 6.5 pH (5.0-7.0)
[2017-01-18 16:08] LABS: Urine Appearance Clear; Urine Bacteria TRACE; Urine Color Yellow; Urine RBC None Seen /hpf (0-5); Urine WBC TRACE /hpf (0-5)
[2017-01-18 16:19] LABS: Cocaine Ur Negative (NEGATIVE); Urine Barbiturate Negative (NEGATIVE); Urine Benzodiazepines Negative (NEGATIVE); Urine Opiates Negative (NEGATIVE); Urine PCP Negative (NEGATIVE); Urine THC Negative (NEGATIVE)
[2017-01-18] MEDS ORDERED: TERBUTALINE SULFATE 1 MG/ML VIAL ONE (18:37)
[2017-01-18] MEDS ORDERED: ceFAZolin SODIUM 1 GM in DEXTROSE 5 % IN WATER 100 ML IV SCH ×2 (23:45)
== END 2017-01-18 18:50 | disposition short-term general hospital (02) ==
LOC: OBCLINIC 15:18 → INTOOBSV 18:00 → OB 18:00
PROVIDERS: ADMIT Obstetrics & Gynecology; ATTEND Obstetrics & Gynecology
DX: O60.03 Preterm labor without delivery, third trimester (principal); Z3A.34 34 weeks gestation of pregnancy; Z87.891 Personal history of nicotine dependence
CPT/HCPCS: 59025; 80307; 81001; 96365; 96372; G0378